=== PATIENT | male | born 1980 | race Caucasian/White ===

== ENCOUNTER 2022-10-13 12:02 | Inpatient (IN) | payer OTHER ==
[2022-10-13 12:09] VITALS: BMI 30.1
[2022-10-13] MEDS ORDERED: SODIUM CHLORIDE 1,000 ML IV STA ×2 (13:04→16:33)
[2022-10-13] MEDS ORDERED: ACETAMINOPHEN 1000 MG/100 ML BAG IVPB ONE ×2 (13:04→20:51)
[2022-10-13] MEDS ORDERED: ONDANSETRON 4 MG/2 ML VIAL IVPUSH ONE (13:04)
[2022-10-13] MEDS ORDERED: ONDANSETRON 4 MG/2 ML VIAL ONE ×2 (13:27→19:52)
[2022-10-13] MEDS ORDERED: ACETAMINOPHEN INJECTION 100 ML IVPB ONE (13:27)
[2022-10-13 14:05] LABS: BASO % 0.4 % (0-2.0); EOS % 0.1 % (0-4.5); HEMATOCRIT 42.2 % (35.4-49); HEMOGLOBIN 14.4 GM/dL (11.7-16.9); LYMPH % 9.3 % (8-40); MCH 30.3 pg (25.7-33.7); MCHC 34.2 g/dl (32.0-35.9); MEAN CELL VOLUME 88.8 fl (80-96); MEAN PLT VOLUME 7.8 fl (7.5-11.1); MONO % 7.9 % (3.8-10.2); NEUT % 82.3 % (42.8-82.8); PLATELET COUNT 197 10^3/uL (134-434); RBC 4.75 M/mm3 (4.00-5.60); RDW 13.7 % (11.9-15.9); WHITE BLOOD COUNT 13.2 K/mm3 (4.0-10.0)
[2022-10-13 14:25] LABS: CALCIUM 9.1 mg/dL (8.5-10.1)
[2022-10-13 14:26] LABS: BLOOD UREA NITROGEN 11.6 mg/dL (7-18)
[2022-10-13 14:27] LABS: CREATININE 0.8 mg/dL (0.55-1.3)
[2022-10-13 14:29] LABS: BILIRUBIN,TOTAL 1.7 mg/dL (0.2-1); TOT PROT 7.6 g/dl (6.4-8.2)
[2022-10-13 15:34] LABS: EPI CELLS 6 /uL (0-25.1); HYALINE CASTS 2 /uL (0-3.1); PH,URINE 5.5 (5.0-8.0); URINE APPEARANCE CLEAR; URINE BACTERIA 10 /uL (0-1359); URINE BILIRUBIN NEGATIVE (NEGATIVE); URINE COLOR DK YELLOW; URINE GLUCOSE (UA) NEGATIVE (NEGATIVE); URINE KETONE TRACE (NEGATIVE); URINE LEUK ESTERASE NEGATIVE (NEGATIVE); URINE NITRITE NEGATIVE (NEGATIVE); URINE PROTEIN 1+ (NEGATIVE); URINE WBC 17 /uL (0-25.8)
[2022-10-13 15:38] LABS: URINE RBC 38.9 /uL (0-23.9)
[2022-10-13] MEDS ORDERED: PIPERACILLIN/TAZOB 3.375 GM 3.375 GM in DEXTROSE 5%-WATER - 50 ML IVPB ONE (17:52)
[2022-10-13] MEDS ORDERED: PIPERACILLIN/TAZOB 3.375 GM 3.375 GM/50 ML BAG IVPB ONE (18:03)
[2022-10-13] MEDS ORDERED: ROCURONIUM BROMIDE 50 MG/5 ML SYRINGE ONE ×3 (18:13→22:23)
[2022-10-13] MEDS ORDERED: PROPOFOL 20 ML ONE ×3 (18:13→21:00)
[2022-10-13] MEDS ORDERED: LIDOCAINE HCL/PF 2% SDV 5ML VIAL ONE (18:14)
[2022-10-13] MEDS ORDERED: ePHEDrine SULFATE 50 MG/1 ML AMPULE ONE (18:14)
[2022-10-13] MEDS ORDERED: BUPIVACAINE HCL/PF 0.5% (5MG/ML) 10 ML VIAL ONE (18:27)
[2022-10-13] MEDS ORDERED: ONDANSETRON 4 MG/2 ML VIAL IVPUSH PRN (18:55)
[2022-10-13] MEDS ORDERED: LACTATED RINGERS SOLUTION 1,000 ML IV SCH (19:00)
[2022-10-13 19:28] LABS: INR 1.17 (0.83-1.09); PROTHROMBIN TIME (PATIENT) 13.5 SEC (9.7-13.0)
[2022-10-13 19:31] LABS: ACTIVATED PTT 27.6 SECONDS (25.2-36.5)
[2022-10-13] MEDS ORDERED: KETOROLAC TROMETHAMINE 30 MG/1 ML VIAL ONE (19:52)
[2022-10-13] MEDS ORDERED: DEXAMETHASONE SOD PHOSPHATE 4 MG/1 ML VIAL ONE ×2 (19:52→20:11)
[2022-10-13] MEDS ORDERED: BUPIVACAINE HCL/PF 0.5% (5MG/ML) 10 ML VIAL IJ ONE ×2 (20:45)
[2022-10-13] MEDS ORDERED: oxyCODONE HCL 5 MG TABLET PO PRN (20:54)
[2022-10-13] MEDS ORDERED: KETOROLAC TROMETHAMINE 30 MG/1 ML VIAL IVPUSH ONE (20:55)
[2022-10-13] MEDS ORDERED: GLYCOPYRROLATE 0.2 MG/1 ML VIAL ONE (21:01)
[2022-10-13] MEDS ORDERED: NEOSTIGMINE METHYLSULFATE 0.5 MG/1 ML - 10 ML MDV ONE (21:01)
[2022-10-13] MEDS ORDERED: EPINEPHrine 1:10,000 (P-F SYR) 1 MG/10 ML DISP.SYRIN ONE (21:47)
[2022-10-13] MEDS ORDERED: DOCUSATE SODIUM 100 MG CAPSULE (FP) PO SCH (22:00)
[2022-10-13] MEDS ORDERED: FUROSEMIDE 40 MG/4 ML INJECTABLE VIAL ONE (22:05)
[2022-10-13] MEDS ORDERED: MIDAZOLAM HCL 2 MG/2 ML SINGLE DOSE VIAL ONE ×3 (22:06→22:53)
[2022-10-13 22:12] LABS: ARTERIAL BLD GAS O2 SATURATION 82.5 % (95-98); ARTERIAL BLOOD GAS BASE EXCESS -7.2 mmol/L (-2-2); ARTERIAL BLOOD GAS PO2 56.7 mmHg (80-100); ARTERIAL BLOOD GAS pH 7.201 (7.350-7.450)
[2022-10-13 22:39] LABS: ARTERIAL BLD GAS O2 SATURATION 89.1 % (95-98); ARTERIAL BLOOD GAS BASE EXCESS -7.2 mmol/L (-2-2); ARTERIAL BLOOD GAS PO2 65.5 mmHg (80-100); ARTERIAL BLOOD GAS pH 7.236 (7.350-7.450)
[2022-10-13] MEDS ORDERED: VASOPRESSIN 20 UNITS/ML VIAL IV ONE (22:55)
[2022-10-13] MEDS ORDERED: MIDAZOLAM IN 0.9 % SOD.CHLORID 100 MG/100 ML PLAST..BAG IVPB SCH (23:45)
[2022-10-13] MEDS ORDERED: FUROSEMIDE INJECTION 100 MG in DEXTROSE 5%-WATER - 90 ML IVPB SCH (23:45)
[2022-10-13 23:55] LABS: ARTERIAL BLD GAS O2 SATURATION 90.6 % (95-98); ARTERIAL BLOOD GAS BASE EXCESS -4.4 mmol/L (-2-2); ARTERIAL BLOOD GAS PO2 64.4 mmHg (80-100); ARTERIAL BLOOD GAS pH 7.308 (7.350-7.450)
[2022-10-14] MEDS ORDERED: NOREPINEPHRINE BITARTRATE 4,000 MCG in DEXTROSE 5%-WATER - 496 ML IV SCH (00:30)
[2022-10-14 00:49] LABS: HEMATOCRIT 38.2 % (35.4-49); HEMOGLOBIN 12.8 GM/dL (11.7-16.9); MCH 29.9 pg (25.7-33.7); MCHC 33.5 g/dl (32.0-35.9); MEAN CELL VOLUME 89.4 fl (80-96); MEAN PLT VOLUME 8.4 fl (7.5-11.1); PLATELET COUNT 166 10^3/uL (134-434); RBC 4.28 M/mm3 (4.00-5.60); RDW 13.8 % (11.9-15.9)
[2022-10-14 00:52] LABS: BLOOD UREA NITROGEN 13.7 mg/dL (7-18); MAGNESIUM 1.6 mg/dL (1.8-2.4)
[2022-10-14 00:56] LABS: CREATININE 1.2 mg/dL (0.55-1.3)
[2022-10-14] MEDS: FENTANYL NS IVPB 500 MCG/100 ML BAG IVPB SCH ×4 (01:27→16:18)
[2022-10-14 01:41] LABS: CALCIUM 7.1 mg/dL (8.5-10.1)
[2022-10-14] MEDS ORDERED: MAGNESIUM SULFATE IN WATER 2 GM/50 ML IVPB IVPB ONE (01:53)
[2022-10-14] MEDS ORDERED: CALCIUM GLUCONATE IN NACL 1 GM/50 ML BAG IVPB ONE ×2 (01:59→11:38)
[2022-10-14] MEDS: ALBUTEROL SO4 2.5/IPRATROPIUM 0.5 INH SOL 3 ML VIAL.NEB. NEB SCH ×5 (03:30→20:05)
[2022-10-14 04:30] LABS: ARTERIAL BLD GAS O2 SATURATION 87.2 % (95-98); ARTERIAL BLOOD GAS BASE EXCESS -4.2 mmol/L (-2-2); ARTERIAL BLOOD GAS PO2 58.5 mmHg (80-100); ARTERIAL BLOOD GAS pH 7.291 (7.350-7.450)
[2022-10-14] MEDS: KCL 10 MEQ IVPB 10 MEQ/100 ML INFUS.BAG IVPB SCH ×3 (05:00→08:28)
[2022-10-14] MEDS ORDERED: MINERAL OIL/PETROLATUM,WHITE 3.5 GM TUBE OU PRN (06:03)
[2022-10-14] MEDS ORDERED: ROCURONIUM BROMIDE 500 MG/300 ML BAG IVPB SCH (06:15)
[2022-10-14] MEDS ORDERED: ACETAMINOPHEN 1000 MG/100 ML BAG IVPB PRN ×2 (07:36→07:59)
[2022-10-14 08:14] LABS: ARTERIAL BLD GAS O2 SATURATION 97.3 % (95-98); ARTERIAL BLOOD GAS BASE EXCESS -3.7 mmol/L (-2-2); ARTERIAL BLOOD GAS PO2 100.6 mmHg (80-100); ARTERIAL BLOOD GAS pH 7.338 (7.350-7.450)
[2022-10-14 08:20] LABS: HEMATOCRIT 37.2 % (35.4-49); HEMOGLOBIN 13.1 GM/dL (11.7-16.9); MCH 31.4 pg (25.7-33.7); MCHC 35.2 g/dl (32.0-35.9); MEAN CELL VOLUME 89.1 fl (80-96); MEAN PLT VOLUME 8.3 fl (7.5-11.1); PLATELET COUNT 183 10^3/uL (134-434); RBC 4.17 M/mm3 (4.00-5.60); RDW 13.6 % (11.9-15.9); WHITE BLOOD COUNT 10.2 K/mm3 (4.0-10.0)
[2022-10-14 08:39] LABS: BLOOD UREA NITROGEN 14.6 mg/dL (7-18); CALCIUM 7.3 mg/dL (8.5-10.1); MAGNESIUM 2.2 mg/dL (1.8-2.4)
[2022-10-14] MEDS: HEPARIN NA (PORCINE) 5,000 UNITS/ML 1ML VIAL SQ SCH ×2 (09:39→21:56)
[2022-10-14] MEDS: PANTOPRAZOLE SODIUM 40 MG VIAL IVPUSH SCH (09:39)
[2022-10-14] MEDS ORDERED: PROPOFOL 1,000,000 MCG/100 ML VIAL ONE (15:09)
[2022-10-14] MEDS ORDERED: PROPOFOL 1,000,000 MCG/100 ML VIAL IVPB SCH (15:15)
[2022-10-14] MEDS ORDERED: FUROSEMIDE 40 MG/4 ML INJECTABLE VIAL IVPUSH ONE ×2 (20:26→21:26)
[2022-10-14] MEDS ORDERED: DEXMEDETOMIDINE PREMIX 400 MCG/100 ML BAG IVPB SCH (20:30)
[2022-10-14 20:57] LABS: ARTERIAL BLD GAS O2 SATURATION 97.2 % (95-98); ARTERIAL BLOOD GAS BASE EXCESS 4.3 mmol/L (-2-2)
[2022-10-14 20:58] LABS: VENT MODE V-A/C; VENT RATE 15
[2022-10-14] MEDS: MUPIROCIN 2% TOPICAL OINTMENT FOR DECOLONIZATION NS SCH (21:33)
[2022-10-14] MEDS: CHLORHEXIDINE GLUCONATE 4% CLEANSER FOR DECOLONIZATION TP SCH (21:33)
[2022-10-14 22:45] LABS: ARTERIAL BLD GAS O2 SATURATION 93.9 % (95-98); ARTERIAL BLOOD GAS BASE EXCESS 3.2 mmol/L (-2-2); ARTERIAL BLOOD GAS PO2 68.5 mmHg (80-100); ARTERIAL BLOOD GAS pH 7.419 (7.350-7.450)
[2022-10-14 22:49] LABS: VENT MODE PSV; VENT RATE 10
[2022-10-15 00:56] LABS: BLOOD UREA NITROGEN 14.6 mg/dL (7-18); CALCIUM 7.7 mg/dL (8.5-10.1); MAGNESIUM 1.9 mg/dL (1.8-2.4)
[2022-10-15 00:58] LABS: CREATININE 0.9 mg/dL (0.55-1.3); PHOSPHOROUS 2.5 mg/dL (2.5-4.9)
[2022-10-15 01:00] LABS: BILIRUBIN,TOTAL 1.4 mg/dL (0.2-1); TOT PROT 6.2 g/dl (6.4-8.2)
[2022-10-15 06:36] LABS: ARTERIAL BLD GAS O2 SATURATION 93.6 % (95-98); ARTERIAL BLOOD GAS BASE EXCESS 5.3 mmol/L (-2-2); ARTERIAL BLOOD GAS PO2 67.4 mmHg (80-100)
[2022-10-15] MEDS: ALBUTEROL SO4 2.5/IPRATROPIUM 0.5 INH SOL 3 ML VIAL.NEB. NEB SCH ×3 (07:20→15:00)
[2022-10-15 07:27] LABS: INR 1.24 (0.83-1.09); PROTHROMBIN TIME (PATIENT) 14.3 SEC (9.7-13.0)
[2022-10-15 07:29] LABS: ACTIVATED PTT 25.6 SECONDS (25.2-36.5)
[2022-10-15] MEDS: HEPARIN NA (PORCINE) 5,000 UNITS/ML 1ML VIAL SQ SCH ×2 (10:01→22:40)
[2022-10-15] MEDS: PANTOPRAZOLE SODIUM 40 MG VIAL IVPUSH SCH (10:01)
[2022-10-15] MEDS: MUPIROCIN 2% TOPICAL OINTMENT FOR DECOLONIZATION NS SCH ×2 (10:02→22:40)
[2022-10-15] MEDS ORDERED: ACETAMINOPHEN 325 MG TABLET (FP) PO PRN (15:41)
[2022-10-15] MEDS ORDERED: SENNOSIDES 8.6MG TABLET (FP) PO PRN (15:43)
[2022-10-15] MEDS ORDERED: oxyCODONE HCL 5 MG TABLET PO PRN (15:44)
[2022-10-15] MEDS ORDERED: KETOROLAC TROMETHAMINE 30 MG/1 ML VIAL IVPUSH PRN (15:44)
[2022-10-15] MEDS ORDERED: ALBUTEROL SO4 2.5/IPRATROPIUM 0.5 INH SOL 3 ML VIAL.NEB. NEB PRN (15:44)
[2022-10-15 17:52] LABS: BASO % 0.3 % (0-2.0); EOS % 0.2 % (0-4.5); HEMATOCRIT 34.7 % (35.4-49); HEMOGLOBIN 12.2 GM/dL (11.7-16.9); LYMPH % 9.9 % (8-40); MCH 30.8 pg (25.7-33.7); MEAN CELL VOLUME 87.9 fl (80-96); MONO % 8.3 % (3.8-10.2); NEUT % 81.3 % (42.8-82.8); PLATELET COUNT 157 10^3/uL (134-434); RBC 3.95 M/mm3 (4.00-5.60); RDW 13.5 % (11.9-15.9)
[2022-10-15] MEDS ORDERED: KETOROLAC TROMETHAMINE 30 MG/1 ML VIAL IVPUSH SCH (18:00)
[2022-10-15] MEDS: CHLORHEXIDINE GLUCONATE 4% CLEANSER FOR DECOLONIZATION TP SCH (22:40)
[2022-10-16 07:19] LABS: HEMATOCRIT 35.3 % (35.4-49); HEMOGLOBIN 12.2 GM/dL (11.7-16.9); MCH 30.7 pg (25.7-33.7); MCHC 34.5 g/dl (32.0-35.9); MEAN CELL VOLUME 89.1 fl (80-96); MEAN PLT VOLUME 8.5 fl (7.5-11.1); PLATELET COUNT 172 10^3/uL (134-434); RBC 3.96 M/mm3 (4.00-5.60); WHITE BLOOD COUNT 7.3 K/mm3 (4.0-10.0)
[2022-10-16 07:44] LABS: CALCIUM 8.3 mg/dL (8.5-10.1)
[2022-10-16 07:45] LABS: BLOOD UREA NITROGEN 13.5 mg/dL (7-18)
[2022-10-16 07:48] LABS: BILIRUBIN,TOTAL 1.8 mg/dL (0.2-1); CREATININE 0.7 mg/dL (0.55-1.3)
[2022-10-16 07:49] LABS: TOT PROT 6.4 g/dl (6.4-8.2)
[2022-10-16] MEDS: HEPARIN NA (PORCINE) 5,000 UNITS/ML 1ML VIAL SQ SCH ×3 (08:17→21:51)
[2022-10-16] MEDS ORDERED: POLYETHYLENE GLYCOL (HEALTHYLAX) 3350 17 GM PACKET PO SCH (10:00)
[2022-10-16] MEDS: MUPIROCIN 2% TOPICAL OINTMENT FOR DECOLONIZATION NS SCH (11:41)
[2022-10-16] MEDS: PANTOPRAZOLE SODIUM 40 MG VIAL IVPUSH SCH (11:42)
[2022-10-16] MEDS ORDERED: SENNOSIDES 8.6MG TABLET (FP) PO PRN (21:05)
[2022-10-16] MEDS ORDERED: ACETAMINOPHEN 325 MG TABLET (FP) PO PRN (21:05)
[2022-10-16] MEDS ORDERED: ALBUTEROL SO4 2.5/IPRATROPIUM 0.5 INH SOL 3 ML VIAL.NEB. NEB PRN (21:05)
[2022-10-17] MEDS: HEPARIN NA (PORCINE) 5,000 UNITS/ML 1ML VIAL SQ SCH (05:57)
[2022-10-17 09:35] LABS: BASO % 0.3 % (0-2.0); HEMOGLOBIN 12.5 GM/dL (11.7-16.9); LYMPH % 14.2 % (8-40); MCH 30.5 pg (25.7-33.7); MCHC 34.6 g/dl (32.0-35.9); MEAN CELL VOLUME 88.2 fl (80-96); MEAN PLT VOLUME 7.8 fl (7.5-11.1); MONO % 9.2 % (3.8-10.2); NEUT % 74.3 % (42.8-82.8); PLATELET COUNT 198 10^3/uL (134-434); RBC 4.08 M/mm3 (4.00-5.60); RDW 12.8 % (11.9-15.9); WHITE BLOOD COUNT 6.6 K/mm3 (4.0-10.0)
[2022-10-17] MEDS ORDERED: LISINOPRIL 20 MG TABLET PO SCH ×2 (10:00)
[2022-10-17] MEDS ORDERED: amLODIPine BESYLATE 5 MG TABLET (FP) PO SCH ×2 (10:00)
[2022-10-17] MEDS ORDERED: HYDROCHLOROTHIAZIDE 25 MG TABLET (FP) PO SCH ×2 (10:00)
[2022-10-17] MEDS ORDERED: PANTOPRAZOLE SODIUM 40 MG VIAL IVPUSH SCH (10:00)
[2022-10-17] MEDS ORDERED: POLYETHYLENE GLYCOL (HEALTHYLAX) 3350 17 GM PACKET PO SCH (10:00)
[2022-10-17 10:05] LABS: BLOOD UREA NITROGEN 14.3 mg/dL (7-18)
[2022-10-17 10:06] LABS: ALBUMIN 3.1 g/dl (3.4-5.0); CALCIUM 8.7 mg/dL (8.5-10.1)
[2022-10-17 10:10] LABS: CREATININE 0.7 mg/dL (0.55-1.3)
[2022-10-17 10:12] LABS: BILIRUBIN,TOTAL 1.3 mg/dL (0.2-1); TOT PROT 6.6 g/dl (6.4-8.2)
[2022-10-17 11:15] VITALS: BP 139/86; PULSE 74; RESP 20; TEMP 98.2
== END 2022-10-17 12:48 | disposition home or self-care (01) | DRG 952 ==
LOC: JER 12:02 → JASUSAT 18:08 → UNDOADMIN 18:08 → SUATTDRO 18:08 → JERBED 18:08 → JICU 23:34 → JASUSAT 10-14 10:45 → JICU 10-14 10:46 → J8W 10-16 21:04
PROVIDERS: ADMIT Internal Medicine; ATTEND Internal Medicine
PROC: 5A1935Z Respiratory Ventilation, Less than 24 Consecutive Hours (ICD-10-PCS; 2022-10-13)
PROC: 0BH17EZ Insertion of Endotracheal Airway into Trachea, Via Natural or Artificial Opening (ICD-10-PCS; 2022-10-13)
PROC: 0DTJ4ZZ Resection of Appendix, Percutaneous Endoscopic Approach (ICD-10-PCS; principal; 2022-10-13 20:00)
DX: J95.821 Acute postprocedural respiratory failure (principal); J81.0 Acute pulmonary edema; K35.80 Unspecified acute appendicitis; G47.33 Obstructive sleep apnea (adult) (pediatric); I10 Essential (primary) hypertension; E66.9 Obesity, unspecified; Z68.30 Body mass index [BMI] 30.0-30.9, adult
CPT/HCPCS: 36415; 36600; 71045-TC-FY; 71046-TC-FY; 74177-TC; 80048; 80053; 81003; 82803; 82962; 83605; 83690; 83735; 84100; 85025; 85027; 85610; 85730; 86850; 86900; 86901; 87086; 88304-TC; 93005; 93010; 94002; 94010; 94640; 94660; 99285-25; C9803-CS; J1644; U0003; U0005